=== PATIENT | male | born 1970 | race Caucasian/White ===

== ENCOUNTER 2021-12-15 08:18 | Day surgery (SDC) | payer OTHER ==
[~2021-12-15] VITALS: Ht 193 cm; Wt 110.0 kg
== END 2021-12-15 10:42 | disposition home or self-care (01) ==
LOC: ORSCSDS 08:18
PROVIDERS: Internal Medicine Gastroenterology
PROC: 0DBC8ZX Excision of Ileocecal Valve, Via Natural or Artificial Opening Endoscopic, Diagnostic (ICD-10-PCS; principal; 2021-12-15 09:45)
PROC: 0DBM8ZX Excision of Descending Colon, Via Natural or Artificial Opening Endoscopic, Diagnostic (ICD-10-PCS; principal; 2021-12-15 09:45)
PROC: 0DBN8ZX Excision of Sigmoid Colon, Via Natural or Artificial Opening Endoscopic, Diagnostic (ICD-10-PCS; principal; 2021-12-15 09:45)
PROC: 0DBK8ZX Excision of Ascending Colon, Via Natural or Artificial Opening Endoscopic, Diagnostic (ICD-10-PCS; principal; 2021-12-15 09:45)
DX: Z12.11 Encounter for screening for malignant neoplasm of colon (principal); D12.0 Benign neoplasm of cecum; D12.2 Benign neoplasm of ascending colon; D12.4 Benign neoplasm of descending colon; D12.5 Benign neoplasm of sigmoid colon; K57.30 Diverticulosis of large intestine without perforation or abscess without bleeding; Z72.0 Tobacco use; E66.9 Obesity, unspecified; Z68.32 Body mass index [BMI] 32.0-32.9, adult; Z79.899 Other long term (current) drug therapy
CPT/HCPCS: 88305; J2704; J7120

== ENCOUNTER 2024-11-20 12:40 | Day surgery (SDC) | payer OTHER ==
[~2024-11-20] VITALS: Ht 193 cm; Wt 114.4 kg
[~2024-11-20 12:40] MED LIST: Lactated Ringer's 1,000 ML IV ONE; propofoL 50 ML IV ONE
[2024-11-20] MEDS ORDERED: ALBUTEROL AER HFA (13:18)
[2024-11-20] MEDS ORDERED: MONT10T (13:19)
[2024-11-20] MEDS ORDERED: Lactated Ringer's 1,000 ML IV ONE (15:03)
[2024-11-20 17:25] VITALS: BP 118/85
--- NOTE | 2024-11-20 17:26 | NUR ---
11/20/24 0220 Henry Nazario WRITTEN D/C INSTRUCTIONS LEFT IN ROOM. PT'S CALLED. SHE STATES THEY WILL CORN SHREDDER TOMORROW (11-20-24). D/C PACKET LEFT AT [employer]BER SERVICES REPRESENTATIVE WITH NOTE.
== END 2024-11-20 16:55 | disposition home or self-care (01) ==
LOC: ORSCSDS 12:40
PROVIDERS: Internal Medicine Gastroenterology
PROC: 0DBK8ZX Excision of Ascending Colon, Via Natural or Artificial Opening Endoscopic, Diagnostic (ICD-10-PCS; principal; 2024-11-20 14:15)
DX: Z12.11 Encounter for screening for malignant neoplasm of colon (principal); Z86.0101 Personal history of adenomatous and serrated colon polyps; D12.2 Benign neoplasm of ascending colon; J45.909 Unspecified asthma, uncomplicated; Z87.891 Personal history of nicotine dependence; E78.1 Pure hyperglyceridemia; R73.9 Hyperglycemia, unspecified; Z79.899 Other long term (current) drug therapy
CPT/HCPCS: 88305; J2704; J7120